=== PATIENT | male | born 1930 | race Caucasian/White ===

== ENCOUNTER 2017-02-25 17:25 | Inpatient (IN) ==
--- NOTE | 2017-02-25 18:09 | Emergency Department Note ---
Arrival - Arrival Chief Complaint: Fever Stated Complaint: fever ED Nursing Triage Note: Brought in by EMS c/o intermittent confusion, fever, and abd pain-onset "about a week ago". Mode of Arrival: Stretcher Time Seen by Provider: 02/25/17 18:05 - History of Present Illness HPI Narrative: This is an 87-year-old white male with history of prostate cancer and colon cancer status post surgeries with radiation and chemotherapy with left-sided lung metastasis status post resection, atrial fibrillation on verapamil, DVT status post IVC filter not placed on anticoagulation because of chronic rectal bleeding, with pneumonia diagnosed on 09/08/2015 who presents with decrease in mental status and temperature of 102. The patient is not very active normally but has had a decrease in activity for the past few weeks for which he saw Dr. Magana who did laboratory tests last week which were normal and his schedule an MRI scan of the brain. Today the noticed that he was less alert than normally she was unable to get him out of the chair to move him to the bed or kitchen. She called Dr. Magana who called her home health nurse who found he had a temperature of 102. The patient has had no cough abdominal pain back pain nor chills. He is sleepy but responds to verbal questions and answers them appropriately. The patient is oriented to time place and person. Allergies/Adverse Reactions: Allergies Allergy/AdvReac Type Severity Reaction Status Date / Time No Known Allergies Allergy Verified 12/12/15 18:19 Home Medications: Home Medications Medication Instructions Recorded Confirmed Type ALPRAZolam [Xanax] 0.25 mg PO Q12H PRN #40 tablet 02/08/16 01/29/17 Rx Aspirin [Ecotrin] 81 mg PO BEDTIME 06/23/16 01/29/17 History Verapamil HCl [Verapamil ER Cap] 120 mg PO DAILY 09/10/16 01/29/17 History Review of System - Review of System Constitutional: Present: fever. Absent: chills, night sweats Eyes: Absent: redness, vision change Head/Ears/Nose/Throat: Absent: epistaxis, nasal drainage Respiratory: Absent: respiratory distress, wheezing Cardiovascular: Absent: dyspnea on exertion, orthopnea Gastrointestinal: Absent: nausea, vomiting, diarrhea, constipation Genitourinary male: Absent: dysuria, hematuria Musculoskeletal: Absent: joint swelling, lower back pain Skin: Absent: change in color, change in hair/nails, pruritus Neurological: Absent: headache, numbness Psychiatric: Absent: anxiety, depression Endocrine: Absent: heat intolerance, polydipsia, polyuria Hematological/Lymphatic: Absent: easy bleeding, easy bruising Allergic/Immunologic: Absent: urticaria, itchy eyes Medical,Surgical,& Family Hx - Medical History Cardio: History of: Cardiac Dysrhythmia (afib), Hypertension No history of: Pacemaker Psychological: History of: Anxiety Disorders Neurology: No history of: Seizures HEENT: History of: 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) Respiratory: History of: Lung Cancer Genitourinary: History of: Prostate Problems (prostate cancer) Gastrointestinal: History of: Diverticulitis/ Diverticulosis, Gastrointestinal Cancer (colon CA) No history of: Hepatitis, Liver Problems Hematology: History of: Anemia No history of: Blood Transfusion Reaction Other: History of: Cancer (colon prostate lung), Miscellaneous Medical Problems (IVC filter) No history of: Anesthesia Reactions - Surgical History Cardiac Surgeries: Sugical HX of: Internal Defibrillator, Vascular Access Devices (Lt chest mediport) Patient Denies: Cardiac Catheterization, Cardiac Surgery Thoracic Surgeries: Surgical HX of;: Lobectomy (resection of metastatic colon lesion) HEENT Surgeries: Surgical HX of: Eye Surgery (cataracts), Tonsilectomy & Adenoidectomy Abdominal Surgeries: Surgical HX of: Abdominal Surgery (colon resection-2004), Appendectomy, Cholecystectomy, Colonoscopy, Hernia Repair Reproductive Surgeries: Surgical HX of;: Prostate Surgery (prostatectomy 1999) Orthopedic Surgeries: Patient denies;: Orthopedic Surgery - Family History Family History: Reports;: Family Cancer (mother) - Social History Smoking Status: Never smoker Frequency of Alcohol Use: None Type of Drug Use: None Exam Vital Signs: Vital Signs Temperature 101.4 F H 02/25/17 17:33 Pulse Rate 109 H 02/25/17 17:33 Respiratory Rate 32 H 02/25/17 17:33 Blood Pressure 111/63 02/25/17 17:33 O2 Sat by Pulse Oximetry 100 02/25/17 17:33 - General General appearance: alert, in no apparent distress - Head Head exam: Present: atraumatic, normocephalic - Eye Eye exam: Present: PERRL, EOMI - ENT ENT exam: Present: normal exam, normal oropharynx - Neck Neck exam: Present: normal inspection - Chest Chest inspection: Present: normal inspection - Respiratory Respiratory exam: Present: normal lung sounds bilaterally - Cardiovascular Cardiovascular exam: Present: tachycardia - Abdominal Exam Abdominal exam: Present: soft, normal bowel sounds - Extremities Exam Extremities exam: Present: normal inspection, full ROM - Back Exam Back exam: Present: normal inspection, full ROM - Neurological Exam Neurological exam: Present: oriented X3, CN II-XII intact. Absent: motor sensory deficit - Psychiatric Psychiatric exam: Present: normal affect, normal mood - Skin Skin exam: Present: warm, dry Course Course Narrative: The case was discussed with Dr. Funez who agreed with a working diagnosis of sepsis possibly related to a pelvic abscess for which he agreed to the antibiotics cefepime 2000 mg every 8 hours with vancomycin 1 g every 24 hours and he suggested consultation with interventional radiology. Therefore it seems reasonable the patient should be admitted to the hospital for sepsis on the basis of a pelvic abscess. Results - Labs CBC & BMP: 02/25/17 17:51 02/25/17 17:51 Disposition Clinical Impression: Sepsis, Pelvic abscess Disposition: Still a Patient Additional Instructions: The patient appears to have sepsis on the basis of a pelvic abscess with a 23, 000 white blood cell count. The case was discussed with Dr. Funez who agreed to admit the patient for further evaluation and treatment and possible interventional radiology drainage of the pelvic abscess.
[2017-02-25] MEDS ORDERED: SODIUM CHLORIDE 0.9% 2,000 ML IV STA (18:20)
[2017-02-25] MEDS ORDERED: CEFEPIME 2,000 MG in SODIUM CHLORIDE 0.9% 100 ML IV STA (18:24)
[2017-02-25] MEDS ORDERED: VANCOMYCIN INJ 1,000 MG in SODIUM CHLORIDE 0.9% 250 ML IV STA (18:25)
[2017-02-25 18:33] LABS: VBG HCO3 23.6 MEQ/L (24-28); VBG PCO2 30.1 MMHG (41-51); VBG PH 7.512; VBG PO2 190.1 MMHG (17-40)
[2017-02-25 18:42] LABS: Basophils # 0.1 10*3/uL (0.0-0.2); Basophils % 0.2 % (0.0-0.8); Hemoglobin 8.7 GM/DL (14.0-18.0); Immature Granulocytes % 2.4 %; Immature Granulocytes Absolute 0.68 #; Lymphocytes # 0.1 10*3/uL (1.4-4.0); Lymphocytes % 0.4 % (21.2-54.2); Mean Corpuscular HGB Conc 31.1 GM/DL (32-36); Mean Corpuscular Hemoglobin 24 PG (27-34); Mean Corpuscular Volume 78.2 FL (87-102); Monocytes # 0.7 10*3/uL (0.11-0.8); Monocytes % 2.3 % (1.7-12.7); Neutrophils # 26.9 10*3/uL (1.4-7.4); Neutrophils % 94.7 % (38.7-73.9); Platelet Count 360 T/CUMM (130-400); Red Blood Count 3.58 MC/CUMM (3.8-5.5); Red Cell Distribution Width 20.5 % (9.3-17.3); White Blood Count 28.4 T/CUMM (4-12)
[2017-02-25 18:50] LABS: Bilirubin,Total 1.4 MG/DL (0.2-1.0); Calcium 7.9 MG/DL (8.5-10.1); Osmolality,Calculated 282.5 MOS/KG (273-304)
--- NOTE | 2017-02-25 19:52 | CT Report ---
History of sepsis 100 cc Omni 350 utilized Chest: No enlarged mediastinal or hilar nodes seen. The heart is enlarged. There is large right pleural effusion and small left pleural effusion. There is mild adjacent atelectasis. Scarring in the left mid chest with minimal subpleural and stranding opacities present. Abdomen: No focal defects seen in the liver, pancreas, or adrenals. Small splenic hypodensities similar on the prior study. Failure clips in the gallbladder fossa Bowel is unopacified There has been interval development of mild dilatation of both renal collecting systems and ureters to the level of the urinary bladder. IVC filter is present. Diffuse diverticuli present Pelvis: There is been interval development of a 5.8 x 9.5 cm complex multiloculated fluid collection in the presacral region contiguous with the rectum were there are multiple clips present. There is diffuse stranding in the mesenteric and body wall fat. Air is present in the urinary bladder with mild relative bladder wall thickening posteriorly. Impression: 1. Interval development of 5.8 x 9.5 cm complex cystic fluid collection the presacral region which could been any combination of mass or abscess. 2. New dilatation of both renal collecting systems to the level of urinary bladder were there is mild bladder wall thickening posteriorly. Air in the urinary bladder may be related to recent catheterization. Close clinical correlation requested. 3. IVC filter 4. Prior cholecystectomy 5. A large right and small left pleural effusions with underlying atelectasis 6. Diverticulosis The CT exam was performed using one or more of the following dose reduction techniques: Automated exposure control, adjustment of the mA and/or kV according to patient size, or use of iterative reconstruction technique. PROCEDURE INTERPRETED AT [facility] DEPARTMENT OF RADIOLOGY Final Report Signed by: Dr. Deisy Swan
[2017-02-25] MEDS ORDERED: chlorproMAZINE INJ 50 MG in SODIUM CHLORIDE 0.9% 100 ML IV PRN (20:29)
[2017-02-25] MEDS ORDERED: LOPERAMIDE 2 MG CAPSULE PO PRN ×2 (20:29)
[2017-02-25] MEDS ORDERED: diphenhydrAMINE CAP 25 MG CAPSULE PO PRN (20:29)
[2017-02-25] MEDS ORDERED: MYLANTA/LIDO VISC 2:1 300 ML BOTTLE SWISH/SPIT PRN (20:29)
[2017-02-25] MEDS ORDERED: LACTULOSE 20 GM/30 ML UDCUP PO PRN (20:29)
[2017-02-25] MEDS ORDERED: MYLANTA/LIDO VISC 2:1 300 ML BOTTLE SWISH/SWAL PRN (20:29)
[2017-02-25] MEDS ORDERED: traMADol 50 MG TABLET PO PRN (20:29)
[2017-02-25] MEDS ORDERED: BENZTROPINE 2 MG/2 ML AMP IV PRN (20:29)
[2017-02-25] MEDS ORDERED: ACETAMINOPHEN 325 MG TABLET PO PRN (20:29)
[2017-02-25] MEDS ORDERED: ONDANSETRON 4 MG/2 ML VIAL IV PRN (20:29)
[2017-02-25] MEDS ORDERED: chlorproMAZINE 25 MG TABLET PO PRN (20:29)
[2017-02-25] MEDS ORDERED: chlorproMAZINE INJ 25 MG in SODIUM CHLORIDE 0.9% 100 ML IV PRN (20:29)
[2017-02-25] MEDS ORDERED: TEMAZEPAM 7.5 MG CAPSULE PO PRN (20:29)
[2017-02-25] MEDS ORDERED: ALUMINUM/MAGNES/SIMETH MAX STR 30 ML UDCUP PO PRN (20:29)
[2017-02-25] MEDS ORDERED: guaiFENesin 200 MG/10 ML UDCUP PO PRN (20:29)
[2017-02-25] MEDS ORDERED: PROMETHAZINE INJ 25 MG in SODIUM CHLORIDE 0.9% 50 ML IV PRN (20:29)
[2017-02-25] MEDS ORDERED: MAGNESIUM HYDROXIDE SUSP 30 ML UDCUP PO PRN (20:29)
[2017-02-25 21:24] LABS: Apearance,Urine CLOUDY (Clear); Bacteria,Urine Many /HPF (Few); Bilirubin,Urine Negative (Negative); Blood, Urine Large mg/dL (Negative); Glucose,Urine (UA) Negative (Negative); Ketones,Urine Negative (Negative); Mucus,Urine Many /LPF (Occasional); Nitrite,Urine Negative (Negative); Protein,Urine 100 MG/DL; RBC,Urine 286 /HPF (0-4); Urine Color Red (Yellow); Urine Specific Gravity 1.015 (1.001-1.035); Urine Urobilinogen < 2.0 EU/DL (0.2-1.0); WBC,Urine 441 /HPF (0-6)
[2017-02-25] MEDS ORDERED: VANCOMYCIN 1,000 MG VIAL ONE (21:36)
[2017-02-25 21:38] LABS: INR 1.3; PT Patient Result 13.7 SECS
[2017-02-25 21:50] LABS: Band Neutrophils 4 % (0-10); Platelet Estimate Normal; Segmented Neutrophils 96 % (50-85); Total Cells Counted 100
[2017-02-25] MEDS: CEFEPIME 2,000 MG in SODIUM CHLORIDE 0.9% 50 ML IV SCH (22:33)
[2017-02-25] MEDS: DEXTROSE 5% NACL 0.9% 1,000 ML IV SCH (22:41)
[2017-02-26] MEDS: CEFEPIME 2,000 MG in SODIUM CHLORIDE 0.9% 50 ML IV SCH (05:58)
--- NOTE | 2017-02-26 08:24 | Oncology History&Physical ---
Assessment and Plan - Time spent with patient Time spent with patient: Greater than 30 minutes (1) Pelvic abscess Status: Acute Assessment and plan: We will continue IV antibiotics but I will convert his cefepime to Zosyn. I will leave him on vancomycin for now. We will see what IR thinks about draining the abscess. It may be prudent just to manage him with IV antibiotics for now given his complex issues down in the rectal region. 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 I have explained this to him and his how this is not an issue that we will even attempt to repair surgically. I also had a lengthy discussion with him about starting to consider placement as he is getting so physically weak but his is not able to handle him at home by herself. I do not see a reason for him you on a cardiac floor. He is DNR. I have been encouraging to consider comfort measures only for the last few months already. For now he would like to continue receiving blood transfusions and IV medications as needed. If he continues to decline, we are not going to be overly aggressive with him such as placing him on the ventilator. Current Visit: Yes (2) Rectal cancer Status: Chronic Current Visit: No (3) Proctitis, radiation Status: Acute Current Visit: No (4) Anemia Status: Chronic Current Visit: No Qualifiers: Anemia type: iron deficiency Iron deficiency anemia type: chronic blood loss Qualified Code(s): D50.0 - Iron deficiency anemia secondary to blood loss (chronic) (5) Sepsis Status: Acute Current Visit: Yes History of Present Illness History of present illness: Mr. Littlejohn is a 87 year old male with advanced rectal cancer that has been followed with supportive care only for the last few months. 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 He has not had chemotherapy since the spring of this year. He developed confusion over the last few days. He was sent to the emergency room yesterday by [facility] and was found to have a temp of 101 Fahrenheit. His white count was significantly elevated as well. CT scan done in the emergency room showed an area of fluid collection in his presacral region. This is the same place where his known rectal tumor was. It is difficult to ascertain what part of this complex fluid collection is tumor versus abscess. He is currently on vancomycin and cefepime. IR has been consulted to look at his radiology to see if drainage is an option. His mental status is improving already. We will have him on IV fluids for hydration. He is requiring full assistance to get out of bed. Home Medications Medication Instructions Recorded Confirmed Type Aspirin [Ecotrin] 81 mg PO DAILY 06/23/16 02/25/17 History Verapamil HCl [Verapamil ER Cap] 120 mg PO DAILY 09/10/16 01/29/17 History ALPRAZolam [Xanax] 0.25 mg PO Q6-8H PRN 02/25/17 02/25/17 History Ferrous Sulfate 325 mg PO DAILY 02/25/17 02/25/17 History Furosemide Tab [Lasix Tab] 325 mg PO DAILY 02/25/17 02/25/17 History Allergies Allergy/AdvReac Type Severity Reaction Status Date / Time No Known Allergies Allergy Verified 12/12/15 18:19 Medical,Surgical,& Family Hx - Medical History Cardio: History of: Cardiac Dysrhythmia (afib), Hypertension No history of: Pacemaker Psychological: History of: Anxiety Disorders Neurology: No history of: Seizures HEENT: History of: 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) Respiratory: History of: Lung Cancer Genitourinary: History of: Prostate Problems (prostate cancer) Gastrointestinal: History of: Diverticulitis/ Diverticulosis, Gastrointestinal Cancer (colon CA) No history of: Hepatitis, Liver Problems Hematology: History of: Anemia No history of: Blood Transfusion Reaction Other: History of: Cancer (colon prostate lung), Miscellaneous Medical Problems (IVC filter) No history of: Anesthesia Reactions - Surgical History Cardiac Surgeries: Sugical HX of: Internal Defibrillator, Vascular Access Devices (Lt chest mediport) Patient Denies: Cardiac Catheterization, Cardiac Surgery Thoracic Surgeries: Surgical HX of;: Lobectomy (resection of metastatic colon lesion) HEENT Surgeries: Surgical HX of: Eye Surgery (cataracts), Tonsilectomy & Adenoidectomy Abdominal Surgeries: Surgical HX of: Abdominal Surgery (colon resection-2004), Appendectomy, Cholecystectomy, Colonoscopy, Hernia Repair Reproductive Surgeries: Surgical HX of;: Prostate Surgery (prostatectomy 1999) Orthopedic Surgeries: Patient denies;: Orthopedic Surgery - Family History Family History: Reports;: Family Cancer (mother) - Social History Smoking Status: Never smoker Frequency of Alcohol Use: Frequently Type of Drug Use: None ROS unobtainable: due to mental status - Constitutional Constitutional: Present: fatigue, fever(s), weakness Exam - Constitutional Vitals: Period Temp Pulse Resp BP Sys/Ruiz Pulse Ox Last 24 Hr 97.2 F-101.4 F 68-113 16-32 111-133/63-77 92-100 General appearance: normal weight, mild distress - Head Head Exam: Present: normocephalic, atraumatic - Eye Eye Exam: Present: EOMI. Absent: scleral icterus Pupils: Present: PERRL - ENT ENT exam: Present: normal exam, normal oropharynx - Neck Neck exam: Absent: lymphadenopathy, thyromegaly - Respiratory Respiratory exam: Present: CTAB. Absent: wheezes - Cardiovascular Cardiovascular exam: Present: RRR. Absent: JVD, systolic murmur - GI/Abdominal GI/Abdominal exam: Present: soft. Absent: ascites - Neurological Exam Neurological exam: Present: alert, oriented X3 - Psychiatric Psychiatric exam: Present: normal affect, normal mood - Skin Skin exam: Present: warm, dry Results - Labs CBC & BMP: 02/25/17 17:51 02/25/17 17:51 Quality Measures - VTE Contraindication to Pharmacological VTE Prophylaxis: High Risk of Bleeding
[2017-02-26] MEDS: PIPERACILLIN/TAZOBACTAM 3,375 MG in SODIUM CHLORIDE 0.9% 100 ML IV SCH ×2 (10:06→21:41)
[2017-02-26] MEDS ORDERED: ALPRAZolam 0.25 MG TABLET PO PRN (11:26)
--- NOTE | 2017-02-26 12:43 | Inventional Radiology Consult ---
Assessment and Plan - Time spent with patient Time spent with patient: Less than 30 minutes (1) Pelvic abscess Problem details: presacral collection may have infection and possibly some residual/recurrent neoplastic components Status: Acute Assessment and plan: plan for CT guided drain catheter placement today Current Visit: Yes IR Consult - Data of Consult Patient: new to practice Consult date: 02/26/17 Requesting Physician: Floyd Magana - Consult Narrative Reason for consult: perirectal/presacral abscess History of present illness: Eron is a 87 year old M With a history of rectal cancer, prostate cancer and status post resection with pelvic radiation. Patient has developed a presacral/ perirectal abscess with fever, confusion/sepsis. Request is for possibility of percutaneous drainage. Looking at the imaging, it is difficult to exclude possibility of some tumor recurrence in this location as well. I discussed with the patient the risks and benefits of CT-guided percutaneous abscess drainage catheter placement. Also discussed with patient at this will likely require a transgluteal approach which is uncomfortable and may need to stay in for several weeks but could allow for healing/resolution of this collection. Patient agrees to proceed. - Home Medications and Allergies Home Medications: Home Medications Medication Instructions Recorded Confirmed Type Aspirin [Ecotrin] 81 mg PO DAILY 06/23/16 02/25/17 History Verapamil HCl [Verapamil ER Cap] 120 mg PO DAILY 09/10/16 02/26/17 History ALPRAZolam [Xanax] 0.25 mg PO Q6-8H PRN 02/25/17 02/25/17 History Ferrous Sulfate 325 mg PO DAILY 02/25/17 02/25/17 History Furosemide Tab [Lasix Tab] 325 mg PO DAILY 02/25/17 02/25/17 History Allergies/Adverse Reactions: Allergies Allergy/AdvReac Type Severity Reaction Status Date / Time No Known Allergies Allergy Verified 12/12/15 18:19 12 point system: reviewed and no additional remarkable complaints except as stated Medical,Surgical,& Family Hx - Medical History Cardio: History of: Cardiac Dysrhythmia (afib), Hypertension No history of: Pacemaker Psychological: History of: Anxiety Disorders Neurology: No history of: Seizures HEENT: History of: 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) Respiratory: History of: Lung Cancer Genitourinary: History of: Prostate Problems (prostate cancer) Gastrointestinal: History of: Diverticulitis/ Diverticulosis, Gastrointestinal Cancer (colon CA) No history of: Hepatitis, Liver Problems Hematology: History of: Anemia No history of: Blood Transfusion Reaction Other: History of: Cancer (colon prostate lung), Miscellaneous Medical Problems (IVC filter) No history of: Anesthesia Reactions - Surgical History Cardiac Surgeries: Sugical HX of: Internal Defibrillator, Vascular Access Devices (Lt chest mediport) Patient Denies: Cardiac Catheterization, Cardiac Surgery Thoracic Surgeries: Surgical HX of;: Lobectomy (resection of metastatic colon lesion) HEENT Surgeries: Surgical HX of: Eye Surgery (cataracts), Tonsilectomy & Adenoidectomy Abdominal Surgeries: Surgical HX of: Abdominal Surgery (colon resection-2004), Appendectomy, Cholecystectomy, Colonoscopy, Hernia Repair Reproductive Surgeries: Surgical HX of;: Prostate Surgery (prostatectomy 1999) Orthopedic Surgeries: Patient denies;: Orthopedic Surgery - Family History Family History: Reports;: Family Cancer (mother) - Social History Smoking Status: Never smoker Frequency of Alcohol Use: Frequently Type of Drug Use: None Exam - Labs CBC & BMP: 02/25/17 17:51 02/25/17 17:51 Lab Results: I have reviewed the past 24 hour labs Labs: INR 1.3 02/25/17 18:00 - Constitutional Vitals: Period Temp Pulse Resp BP Sys/Ruiz Pulse Ox Last 24 Hr 97.2 F-101.4 F 68-113 16-32 111-133/63-77 92-100 General appearance: over weight - Eye Eye exam: Present: EOMI - Respiratory Respiratory exam: Present: clear to auscultation bilaterally - Cardiovascular Cardiovascular exam: Present: regular rate and rhythm - Extremities Exam Extremities exam: Present: normal inspection - Neurological Exam Neurological exam: Present: alert, oriented X3 - Psychiatric Psychiatric exam: Present: normal affect, normal mood, agitated - Skin Skin exam: Present: normal color, dry
[2017-02-26] MEDS: ALPRAZolam 0.25 MG TABLET PO PRN ×2 (13:23→23:34)
[2017-02-26] MEDS ORDERED: fentaNYL 100 MCG/2 ML VIAL IV ONE (14:12)
[2017-02-26] MEDS ORDERED: fentaNYL 100 MCG/2 ML VIAL ONE (14:43)
--- NOTE | 2017-02-26 16:38 | Post Interventional Procedure ---
Pre-op diagnosis: prostate/colon cancer with perirecal abscess Post-op diagnosis: same Procedure: CT guided abscess drain catheter placement Contrast: none Flouroscopy: none Radiologist: Lg Roth Anesthesia: local Specimens: other (thick purulent aspirate sent for culture) Estimated blood loss: none Complications: none Condition: stable Description/Findings: presacral abscess targeted for drainage 10 Fr pigtail drain tube placed into the gas/air collection thought to represent the perirectal abscess. thick, dark brown purulent material aspirated patient tolerated well Assessment and Plan - Time spent with patient Time spent with patient: Greater than 30 minutes (1) Pelvic abscess Problem details: presacral collection may have infection and possibly some residual/recurrent neoplastic components Status: Acute Assessment and plan: plan for CT guided drain catheter placement today Current Visit: Yes
--- NOTE | 2017-02-26 16:46 | CT Report ---
CT abscess drainage peritoneal Abscess drainage using CT guidance Clinical Information: Presacral/perirectal abscess, history of prostate and colon cancer with radiation proctitis and presacral collection which is increased when compared to prior imaging suggesting possible perirectal abscess formation. A degree of residual/recurrent malignant involvement related to this collection is also considered. Physician[s]: Dr. Roth Procedure: The patient was advised of the benefits, risks, and alternatives of the procedure and informed consent was obtained. A time out was performed with verification of the patient's name, MRN, site of procedure, and type of procedure to be performed. Local anesthesia only was used for the procedure. The patient was placed in the prone on the CT gantry and a scan was performed through the region of interest. This demonstrates the area of thickened soft tissue with air/fluid levels in the perirectal/presacral space. After marking the overlying skin, the patient was prepped and draped in the usual sterile fashion. The soft tissues overlying the anticipated puncture site were anesthetized with lidocaine. Through this anesthetized region, a 20 G AccuStick needle was passed into the fluid collection with intermittent CT fluoroscopic guidance. Dark brown purulent malodorous material was aspirated. An Amplatz wire was advanced into the fluid collection, over which a 10 [place] Skater all-purpose drain was passed. A fluid specimen was aspirated. Subsequent localized CT-scanning was performed to confirm the catheter location. The catheter was then locked, sutured in position with Percu-Stay device and placed to compressed bulb drainage. The fluid specimen was labeled with the patient's name and medical record number and sent to the laboratory for further analysis. The patient tolerated the procedure well and was returned to the PRU in stable condition. EBL: < 5 mL. Complications: None. Conclusion: 1. Successful placement of a10 [place] Skater pigtail drain in a pelvic presacral/perirectal fluid collection. 2. The catheter should be flushed with 10 ml of normal saline every 12 hours. 3. The primary team should contact Interventional Radiology when output is less than 15 ml per day for two consecutive days. PROCEDURE INTERPRETED AT [facility] DEPARTMENT OF RADIOLOGY Final Report Signed by: Lg Roth
[2017-02-26] MEDS ORDERED: VANCOMYCIN INJ 1,500 MG in SODIUM CHLORIDE 0.9% 500 ML IV SCH (18:30)
[2017-02-27] MEDS: ALPRAZolam 0.25 MG TABLET PO PRN ×3 (02:58→18:50)
[2017-02-27] MEDS: PIPERACILLIN/TAZOBACTAM 3,375 MG in SODIUM CHLORIDE 0.9% 100 ML IV SCH ×3 (03:40→18:48)
[2017-02-27 06:02] LABS: Basophils % 0.2 % (0.0-0.8); Eosinophils # 0.1 10*3/uL (0.0-0.87); Eosinophils % 0.3 % (0.00-10.9); Hematocrit 28.9 VOL% (42.0-52.0); Hemoglobin 8.8 GM/DL (14.0-18.0); Immature Granulocytes % 0.7 %; Immature Granulocytes Absolute 0.12 #; Lymphocytes # 0.4 10*3/uL (1.4-4.0); Lymphocytes % 2.1 % (21.2-54.2); Mean Corpuscular HGB Conc 30.4 GM/DL (32-36); Mean Corpuscular Hemoglobin 24 PG (27-34); Mean Corpuscular Volume 79.8 FL (87-102); Mean Platelet Volume 9.5 FL (9.6-12.0); Monocytes # 0.5 10*3/uL (0.11-0.8); Monocytes % 2.5 % (1.7-12.7); Neutrophils # 16.9 10*3/uL (1.4-7.4); Neutrophils % 94.2 % (38.7-73.9); Platelet Count 326 T/CUMM (130-400); Red Blood Count 3.62 MC/CUMM (3.8-5.5); Red Cell Distribution Width 20.7 % (9.3-17.3); White Blood Count 17.9 T/CUMM (4-12)
[2017-02-27 06:35] LABS: Albumin 1.7 G/DL (3.4-5.0); Bilirubin,Total 1.2 MG/DL (0.2-1.0); Calcium 7.5 MG/DL (8.5-10.1); Magnesium 2.1 MG/DL (1.8-2.4); Potassium 3.9 MMOL/L (3.5-5.1); Total Protein 4.3 G/DL (6.4-8.3)
[2017-02-27] MEDS: DEXTROSE 5% NACL 0.9% 1,000 ML IV SCH ×3 (07:40→16:20)
[2017-02-27 07:49] LABS: Band Neutrophils 20 % (0-10); Lymphocytes 2 % (20-55); Segmented Neutrophils 77 % (50-85); Total Cells Counted 100
[2017-02-27 07:51] LABS: Burr Cells Slight; Macrocytosis 1+; Platelet Estimate Adequate; Polychromasia Slight
[2017-02-27] MEDS ORDERED: SODIUM CHLORIDE 0.9% 250 ML IV PRN (08:28)
--- NOTE | 2017-02-27 08:30 | Oncology Progress Note ---
Assessment and Plan (1) Rectal cancer Status: Chronic Current Visit: No (2) Proctitis, radiation Status: Acute Current Visit: No (3) Anemia Status: Chronic Current Visit: No Qualifiers: Anemia type: iron deficiency Iron deficiency anemia type: chronic blood loss Qualified Code(s): D50.0 - Iron deficiency anemia secondary to blood loss (chronic) (4) Sepsis Status: Acute Current Visit: Yes (5) Pelvic abscess Status: Acute Current Visit: Yes Oncology Subjective PN Interval history: Mr. Littlejohn seems to be doing well today. He now has a drain placed in the abscess site there is rectal. He is still somewhat confused about his location but overall can have a normal conversation. He remains quite weak but is frustrated that he is not able to get out of bed on his own. I told him we will consult physical therapy for their assessment to see how well he can ambulate even if it is with a walker. I will give him 2 units of blood today. I will discontinue vancomycin and continue with Zosyn monotherapy. He will likely be here a few more days. I had a lengthy discussion with his yesterday about the possibility of needing placement if we are not able to get him back to the point where he can ambulate. We may have to consider LTAC or swing bed placement as well. Exam - Constitutional Vitals: Period Temp Pulse Resp BP Sys/Ruiz Pulse Ox Last 24 Hr 96.9 F-98.4 F 91-122 16-22 112-149/64-87 91-99 General appearance: normal weight, no acute distress - Head Head Exam: Present: normocephalic, atraumatic - Eye Eye Exam: Present: EOMI Pupils: Present: PERRL - ENT ENT exam: Present: normal exam, normal oropharynx - Neck Neck exam: Absent: lymphadenopathy, thyromegaly - Respiratory Respiratory exam: Present: CTAB. Absent: wheezes - Cardiovascular Cardiovascular exam: Present: RRR. Absent: JVD, systolic murmur - GI/Abdominal GI/Abdominal exam: Present: soft. Absent: ascites, distended, mass - Neurological Exam Neurological exam: Present: alert, oriented X3 - Psychiatric Psychiatric exam: Present: normal affect, normal mood - Skin Skin exam: Present: warm, dry Results - Labs CBC & BMP: 02/27/17 04:25 02/27/17 04:25 Lab Results: I have reviewed the past 24 hour labs Quality Measures - VTE Contraindication to Pharmacological VTE Prophylaxis: High Risk of Bleeding
[2017-02-27] MEDS ORDERED: LORazepam 2 MG/1 ML VIAL IV ONE (13:15)
[2017-02-27] MEDS: VANCOMYCIN INJ 1,500 MG in SODIUM CHLORIDE 0.9% 500 ML IV SCH (16:19)
[2017-02-28] MEDS: ZINC OXIDE PASTE 113 GM TUBE TOP SCH ×2 (00:51→11:08)
[2017-02-28] MEDS: ALPRAZolam 0.25 MG TABLET PO PRN (01:21)
[2017-02-28] MEDS: PIPERACILLIN/TAZOBACTAM 3,375 MG in SODIUM CHLORIDE 0.9% 100 ML IV SCH ×2 (02:13→12:40)
[2017-02-28 04:16] LABS: Basophils % 0.2 % (0.0-0.8); Eosinophils % 0.2 % (0.00-10.9); Hematocrit 34.3 VOL% (42.0-52.0); Hemoglobin 10.5 GM/DL (14.0-18.0); Immature Granulocytes % 1.1 %; Lymphocytes # 0.3 10*3/uL (1.4-4.0); Lymphocytes % 1.8 % (21.2-54.2); Mean Corpuscular HGB Conc 30.6 GM/DL (32-36); Mean Corpuscular Hemoglobin 25 PG (27-34); Mean Corpuscular Volume 81.1 FL (87-102); Mean Platelet Volume 9.6 FL (9.6-12.0); Monocytes # 0.6 10*3/uL (0.11-0.8); Monocytes % 3.2 % (1.7-12.7); Neutrophils # 16.6 10*3/uL (1.4-7.4); Neutrophils % 93.5 % (38.7-73.9); Platelet Count 313 T/CUMM (130-400); Red Blood Count 4.23 MC/CUMM (3.8-5.5); White Blood Count 17.7 T/CUMM (4-12)
[2017-02-28 04:42] LABS: Albumin 1.8 G/DL (3.4-5.0); Calcium 7.8 MG/DL (8.5-10.1); Magnesium 1.9 MG/DL (1.8-2.4); Osmolality,Calculated 291.7 MOS/KG (273-304); Potassium 3.9 MMOL/L (3.5-5.1); Total Protein 4.7 G/DL (6.4-8.3)
[2017-02-28 05:53] LABS: Band Neutrophils 4 % (0-10); Eosinophils 1 % (0-10); Lymphocytes 1 % (20-55); Platelet Estimate Adequate; Segmented Neutrophils 92 % (50-85); Total Cells Counted 100
[2017-02-28 05:54] LABS: Burr Cells Slight; Giant Platelets Few; Hypochromasia 1+; Macrocytosis Slight; Ovalocytes Slight; Polychromasia Slight
[2017-02-28] MEDS: VANCOMYCIN INJ 1,500 MG in SODIUM CHLORIDE 0.9% 500 ML IV SCH (07:13)
[2017-02-28 08:35] VITALS: BP 128/78
--- NOTE | 2017-02-28 09:09 | Oncology Progress Note ---
Oncology Subjective PN Interval history: Mr. Littlejohn is obtunded this morning. His plan of care seems to have changed from yesterday morning with the family now requesting home hospice. This was discussed with Dr. Kebede yesterday evening. In fact the patient's percutaneous drain appears to have been removed from the right flank. His is at bedside. His vital signs still seem to be reasonable based on last inspection. He would not follow commands. I have written a prescription for morphine liquid drops to be placed intraoral every 2 hours as needed if he is discharged. The patient's 2 sons and [id number] are in route from out of town. I have somewhat voiced my opinion simply to keep him inpatient with comfort measures but the decision to proceed with home hospice will ultimately be decided by his family. Exam - Constitutional Vitals: Period Temp Pulse Resp BP Sys/Ruiz Pulse Ox Last 24 Hr 97.9 F-100.7 F 113-129 18-24 126-155/66-89 92-98 Results - Labs CBC & BMP: 02/28/17 02:12 02/28/17 02:13 Quality Measures - VTE Contraindication to Pharmacological VTE Prophylaxis: High Risk of Bleeding
[2017-02-28] MEDS: DEXTROSE 5% NACL 0.9% 1,000 ML IV SCH (11:08)
--- NOTE | 2017-02-28 11:53 | Discharge Summary ---
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 He was placed on IV antibiotics and the abscess site was drained. He was also given two units of PRBCs. He has rapidly declined over the last 2 days. He is now basically unresponsive. His family desires to take him home for home hospice care with the goal that he will at home instead of in the hospital. Based on the report of the nurses, I am unsure if he will survive more than another 24-48 hrs. Diagnosis - Discharge Diagnosis (1) Rectal cancer Status: Chronic (2) Proctitis, radiation Status: Acute (3) Anemia Status: Chronic (4) Sepsis Status: Acute (5) Pelvic abscess Status: Acute Discharge Plan - Discharge Data Disposition: Hospice - Home Condition at Discharge: Guarded - Discharge Medications New Morphine Sulfate [Roxanol] 10 mg PO Q1-2H PRN #1 syringe PRN Reason: Pain No Action Aspirin [Ecotrin] 81 mg PO DAILY Furosemide Tab [Lasix Tab] 325 mg PO DAILY ALPRAZolam [Xanax] 0.25 mg PO Q6-8H PRN PRN Reason: Anxiety Ferrous Sulfate 325 mg PO DAILY Verapamil HCl [Verapamil ER Cap] 120 mg PO DAILY - Follow Up or Referral - Forms/Instructions Exam - Constitutional Vitals: Period Temp Pulse Resp BP Sys/Ruiz Pulse Ox Last 24 Hr 97.9 F-100.7 F 113-129 18-24 128-155/70-89 92-98 Discharge Results Procedures and tests throughout hospitalization: Pending Orders 02/25/17 17:51 Blood Culture Stat 03/01/17 17:30 Vancomycin,Trough Timed Labs on day of discharge: Labs from last 24 hours 02/28/17 02/28/17 02/27/17 02:13 02:12 04:24 WBC 17.7 H RBC 4.23 Hgb 10.5 L Hct 34.3 L MCV 81.1 L MCH 25 L MCHC 30.6 L RDW 20.0 H Plt Count 313 MPV 9.6 Neut % (Auto) 93.5 H Lymph % (Auto) 1.8 L [place] % (Auto) 3.2 Eos % (Auto) 0.2 Baso % (Auto) 0.2 Neut # (Auto) 16.6 H Lymph # (Auto) 0.3 L [place] # (Auto) 0.6 Eos # (Auto) 0.0 Baso # (Auto) 0.0 Total Counted 100 Immature Gran % 1.1 Nucleated RBC % 0.0 Immature Gran # 0.20 Segmented Neutrophils 92 H Band Neutrophils 4 Lymphocytes 1 L Monocytes 2 Eosinophils 1 Nucleated RBCs # 0.00 Platelet Estimate Adequate Giant Platelets Few Immature Plt Fraction 0.0 Polychromasia Slight Hypochromasia 1+ Macrocytosis Slight Ovalocytes Slight [place] Cells Slight Sodium 145 Potassium 3.9 Chloride 110 H Carbon Dioxide 26 Anion Gap 12.9 BUN 24 H Creatinine 1.00 GFR Calculation 83 BUN/Creatinine Ratio 24.00 H Glucose 91 Calculated Osmolality 291.7 Calcium 7.8 L Magnesium 1.9 Total Bilirubin 2.00 H AST 18 ALT 15 L Alkaline Phosphatase 175 H Total Protein 4.7 L Albumin 1.8 L Globulin 2.9 Albumin/Globulin Ratio 0.6 L Blood Type Cancelled Antibody Screen Cancelled Crossmatch See Detail Blood Bank Comment Cancelled Preliminary micro results at discharge 02/25/17 17:51 Blood Culture - Preliminary Blood No growth at 1 day 02/25/17 17:51 Blood Culture - Preliminary Blood No growth at 1 day DS: Provider Date of admission: 02/25/17 20:29 Primary care physician: Yury Stephenson MD Attending physician on admission: Floyd Magana MD Consults: 02/25/17 20:29 Consult to Physician [CONS] Routine Comment: Pelvic abscess? 5x10 cm Consulting Provider: Lg Roth Date Notified: 02/26/17 Time Notified: 07:44 Consult Notification Comment: spoke with specials/ xray staff. Malina to notify Dr Roth 02/27/17 08:27 Consult to Physical Therapy [CONS] Routine Reason for Physical Therapy: Evaluate and Treat Start Therapy: Today 02/28/17 07:22 Consult to Case Mgmt/Social Srvs [CONS] Routine Reason for Case Mgmt/Social Srvs: Hospice Referral Consult Comment: family has chosen to go home with [facility] today, they are aware 02/28/17 09:27 Consult to Case Mgmt/Social Srvs [CONS] Routine Reason for Case Mgmt/Social Srvs: Equipment Consult Comment: Bedside commode, bedside table Discharging clinician: Floyd Magana MD
[2017-02-28] MEDS ORDERED: HEPARIN LOCK FLUSH 500 UNIT/5 ML SYRINGE IV ONE (12:05)
== END 2017-02-28 13:10 | disposition hospice, home (50) | DRG 872 ==
LOC: EDUNIT# → EDBD → N.ED 17:25 → N.EDINP 20:29 → N.TELEN 21:08 → N.4E 02-26 10:20
PROVIDERS: ADMIT Specialist; ATTEND Specialist